=== PATIENT | male | born 2005 | race Caucasian/White ===

== ENCOUNTER 2024-01-20 12:20 | Emergency (ER) | payer SELFPAY ==
[2024-01-20] MEDS: Sodium Chloride 0.9% 1,000 ML IV STA (13:36)
[2024-01-20] MEDS: Ketorolac 30 MG/ML SDV IVPUSH STA (13:36)
[2024-01-20] MEDS: Ampicillin/Sulbactam Na 3 GM in Sodium Chloride 0.9% 100 ML IV STA (13:36)
[2024-01-20] MEDS: Sodium Chloride 0.9% 10 ML Syringe FLUSH PRN (13:37)
[2024-01-20] MEDS: Sodium Chloride 0.9% 2.5 ML Syringe FLUSH PRN (13:37)
[2024-01-20 13:52] LABS: HEMATOCRIT 43.6 % (42.0-52.0); MEAN CORPUSCULAR HGB CONC 34.4 g/dL (32.0-36.0); MEAN CORPUSCULAR VOLUME 78.6 fL (83.0-99.0); MEAN PLATELET VOLUME 10.9 fL (9.4-12.4); PLATELET COUNT,PLT 218 K/uL (150-400); RED BLOOD CELL COUNT 5.55 M/uL (4.52-5.90); WHITE BLOOD CELL COUNT,WBC 13.68 K/uL (3.9-11.3)
[2024-01-20 14:13] LABS: A/G RATIO 0.9 (0.9-1.6); ALBUMIN 3.8 g/dL (3.4-5.0); BILIRUBIN TOTAL 0.8 mg/dL (0.2-1.0); CALCIUM 9.3 mg/dL (8.5-10.1); CARBON DIOXIDE,CO2 23.4 mmol/L (21.0-32.0); CREATININE 0.9 mg/dL (0.8-1.3); EST CRCL DRUG DOSING (CG) 147.96 mL/min; POTASSIUM,K 3.9 mmol/L (3.5-5.1)
[2024-01-20 14:24] LABS: EOSINOPHILS ABSOLUTE MAN 0.14 K/uL (0.00-0.45); EOSINOPHILS PERCENT MAN 1 % (0-6); LYMPHOCYTES ABSOLUTE MAN 1.92 K/uL (1.00-4.80); LYMPHOCYTES PERCENT MAN 14 % (24-44); MONOCYTES ABSOLUTE MAN 1.92 K/uL (0.00-0.80); MONOCYTES PERCENT MAN 14 % (0-8); SEG NEUTROPHILS ABSOLUTE MAN 9.71 K/uL (1.80-7.70); SEG NEUTROPHILS PERCENT MAN 71 % (41-71)
[2024-01-20] MEDS: Iopamidol 755 MG/ML 500 ML Multipack Bottle IVPUSH STA (15:24)
== END 2024-01-20 17:48 | disposition home or self-care (01) ==
LOC: MW.ED 12:20
DX: J36 Peritonsillar abscess (principal); K11.20 Sialoadenitis, unspecified; I10 Essential (primary) hypertension; Z79.899 Other long term (current) drug therapy; Z75.8 Other problems related to medical facilities and other health care
CPT/HCPCS: 36415; 70491; 80053; 85025; 96361; 96365; 96375; 99283; J0295; J1100; J1885; J3490; J7030; Q9967; 99284